=== PATIENT | female | born 1950 | race Caucasian/White ===

== ENCOUNTER 2016-07-02 07:29 | Day surgery (SDC) | payer MEDICARE ==
[2016-07-02] MEDS ORDERED: BUPIVACAINE 0.25% W/EPI MPF 30ML VIAL IVP ONE (11:14)
[2016-07-02] MEDS ORDERED: LIDOCAINE 2% MDV (20MG/ML) 20ML VIAL IV ONE (13:26)
[2016-07-02] MEDS ORDERED: FENTANYL PF 100MCG/2ML VIAL IV ONE (13:26)
[2016-07-02] MEDS ORDERED: PROPOFOL 10 MG/ML VIAL IV ONE (13:26)
[2016-07-02] MEDS ORDERED: MIDAZOLAM HCL 2MG/2ML VIAL IV ONE (13:26)
--- NOTE | 2016-07-02 15:10 | Operative Note ---
DATE OF SURGERY: 07/02/16 PREOPERATIVE DIAGNOSIS: LEFT FOREHEAD MASS. POSTOPERATIVE DIAGNOSIS: LEFT FOREHEAD MASS. OPERATION: EXCISION OF MASS, LEFT SIDE OF HER FOREHEAD. SURGEON: Talha White D.O. INDICATION: The patient is a 65-year-old female who presented to the clinic with an enlarging mass on her left forehead. This appeared cystic in nature. We did discuss excision, risks, benefits, and alternatives. The risks include; bleeding, infection, recurrence, unfavorable cosmetic outcome and she understood this fully. PROCEDURE: Therefore, consent was signed and questions answered, she was taken to the Operating Room and placed in the supine position. Local IV sedation was given per the Department of Anesthesia. The patient's forehead was prepped and draped in the usual sterile fashion. Time-out was performed and identity was confirmed. At this time, the area of the mass was anesthetized with a total of about 3 mL of 0.25% Sensorcaine with Epinephrine. A curvilinear elliptical incision was made following natural Michelle line. This was carried down to the subcutaneous tissue with cautery. The mass was then excised and passed off the field. Hemostasis was noted. The wound was closed with 4-0 Vicryl and she tolerated the procedure well. Final pathology pending. The size was 3 x 2 cm into the subcutaneous. Talha White D.O. Date & Time cc: Sameera Iglesias M.D. JOB NUMBER: [id number] MTDD
== END 2016-07-02 09:20 | disposition home or self-care (01) ==
LOC: SUR 07:29
PROVIDERS: ATTEND Surgery
DX: D23.39 Other benign neoplasm of skin of other parts of face (principal); E78.00 Pure hypercholesterolemia, unspecified; I10 Essential (primary) hypertension
CPT/HCPCS: 11442; 00300; J3010

== ENCOUNTER 2019-02-06 08:24 | Day surgery (SDC) | payer MEDICARE ==
[2019-02-06] MEDS ORDERED: LIDOCAINE 2% MDV (20MG/ML) 20ML VIAL IV ONE (08:25)
[2019-02-06] MEDS ORDERED: PROPOFOL 10 MG/ML VIAL IV ONE (08:25)
--- NOTE | 2019-02-10 09:00 | Operative Note ---
SURGEON: Vernon Claudio MD OPERATION: COLONOSCOPY. INDICATIONS: This is a 68-year-old female with history of colon polyps who presented for surveillance colonoscopy. POSTOPERATIVE DIAGNOSES: 1. Left-sided colonic diverticulosis. 2. A 5 mm sigmoid colon polyp that was removed by cold snare. 3. Grade 2 internal hemorrhoids. ANESTHESIA: Sedation is per Anesthesia. Pulse oximetry was monitored throughout the procedure to maintain O2 saturation of 90% or greater. Supplemental oxygen was administered via nasal cannula. Cardiac and vital signs were monitored throughout the duration of the procedure, and they were stable. The procedure of colonoscopy and risks and alternatives of the procedure, including the risk of bleeding and perforation, among others, were explained to the patient who voiced understanding and agreed to have the procedure done. Physical examination was performed, and the patient was found stable for sedation. PROCEDURE: The patient was placed in the left lateral position. Sedation was initiated. A digital rectal exam was performed and showed some mild external hemorrhoids with no palpable rectal masses. An Olympus PCF-180AL colonoscope was then inserted into the rectum under direct visualization. It was advanced to the cecum without difficulty. The ileocecal valve and appendiceal orifice were identified and photographed. The colonic mucosa was carefully examined upon introduction of the colonoscope. There were scattered diverticula noted in the sigmoid and descending colon. In the sigmoid colon was a 5 mm sessile polyp that was noted and was removed by cold snare. There were no other lesions noted. The colonoscope was then withdrawn while carefully examining the colonic mucosal surfaces. No other lesions were noted. In the rectum, retroflexion was performed and grade 1 internal hemorrhoids were noted. The colonoscope was then withdrawn and the procedure was terminated. The patient tolerated the procedure well without any immediate complications. The patient remained with stable vital signs and was transferred to the recovery room. RECOMMENDATIONS: 1. The patient should be on a high-fiber diet. 2. The patient is to have a repeat colonoscopy for surveillance in 5 years. Thank you for allowing me to participate in the care of your patient. KANDIS
== END 2019-02-06 10:30 | disposition home or self-care (01) ==
LOC: HOP 08:24
PROVIDERS: ATTEND Internal Medicine Gastroenterology
DX: Z09 Encounter for follow-up examination after completed treatment for conditions other than malignant neoplasm (principal); Z86.010 Personal history of colon polyps; K63.5 Polyp of colon; K57.30 Diverticulosis of large intestine without perforation or abscess without bleeding; K64.8 Other hemorrhoids; I10 Essential (primary) hypertension; E78.00 Pure hypercholesterolemia, unspecified